=== PATIENT | female | born 1935 | race Caucasian/White ===

== ENCOUNTER 2023-08-09 18:55 | Emergency (ER) | payer MEDICARE ==
[~2023-08-09] VITALS: Ht 160 cm; Wt 68.0 kg
[2023-08-09 19:46] LABS: BASO # 0.1 10*3/uL (0.0-0.1); BASO % 0.9 % (0.0-1.0); EOS # 0.2 10*3/uL (0.0-0.4); EOS % 3.1 % (1.0-4.0); HEMATOCRIT 41.5 % (37.0-47.0); LYMPH # 1.9 10*3/uL (1.3-4.4); LYMPH % 23.7 % (27.0-41.0); MEAN CELL VOLUME 96.7 fl (81.0-99.0); MEAN CORPUSCULAR HGB 30.3 pg (27.0-31.0); MEAN CORPUSCULAR HGB CONC 31.3 g/dl (33.0-37.0); MEAN PLATELET VOLUME 9.5 fl (9.6-12.3); MONO # 0.5 10*3/uL (0.1-1.0); MONO % 6.9 % (3.0-9.0); NEUT # 5.1 10*3/uL (2.3-7.9); NEUT % 65.1 % (47.0-73.0); PLATELET COUNT AUTOMATED 256 10*3/uL (130-400); RED BLOOD COUNT 4.29 10*6/uL (4.10-5.10); RED CELL DISTRI WIDTH 13.5 % (0-14.5); WHITE BLOOD COUNT 7.8 10*3/uL (4.8-10.8)
[2023-08-09 20:10] LABS: ALKALINE PHOSPHATASE 100 U/L (46-116); BUN 11 mg/dl (9-23); CHLORIDE 106 mmol/L (98-107); CPK 47 U/L (34-171); SGPT/ALT 15 U/L (5-49); TOTAL PROTEIN 7.2 gm/dL (6.0-8.0)
[2023-08-09 20:11] LABS: ETHYL ALCOHOL < 3.0 mg/dl (<3)
[2023-08-09 20:19] LABS: BILIRUBIN Negative (Negative); BLOOD 1+ (Negative); CLARITY Clear (Clear); COLOR Yellow (Yellow); GLUCOSE Negative (Negative); KETONE Negative (Negative); LEUKO ESTERASE Negative (Negative); NITRITE Negative (Negative); SPECIFIC GRAVITY <= 1.005 (1.001-1.030); UROBILINOGEN 0.2 E.U./dl (0.0-1.0)
[2023-08-09 20:25] LABS: URINE AMPHETAMINES Negative (1000ng/ml); URINE BARBITURATES Negative (200ng/ml); URINE BENZODIAZEPINES Negative (200ng/ml); URINE CANNABINOIDS (THC) Negative (50ng/ml); URINE COCAINE Negative (300ng/ml); URINE METHADONE Negative (300ng/ml); URINE OPIATES Negative (300ng/ml); URINE PHENCYCLIDINE Negative (25ng/ml)
[2023-08-09] MEDS ORDERED: TYLENOL325 M1 PO (20:27)
[2023-08-09] MEDS ORDERED: AMLODIPINE BESYL5 MG PO (20:28)
[2023-08-09] MEDS ORDERED: ELIQUIS5 M1 PO (20:29)
[2023-08-09] MEDS ORDERED: KENALOG-4040 MG/1 ML IM (20:30)
[2023-08-09] MEDS ORDERED: KEPPRA500 MG PO (20:30)
[2023-08-09] MEDS ORDERED: Zestril,Prinivi40 MG PO (20:31)
[2023-08-09] MEDS ORDERED: MELATONIN3 MG PO (20:31)
[2023-08-09] MEDS ORDERED: MILK OF MA400 MG/51 PO (20:34)
[2023-08-09] MEDS ORDERED: Ondansetron4 MG PO (20:35)
[2023-08-09] MEDS ORDERED: MIRTAZAPINE30 M2 PO (20:35)
[2023-08-09 20:36] LABS: WBC 0-2 wbc/hpf (0-5)
[2023-08-09] MEDS ORDERED: EXELON1 EACH T (20:42)
[2023-08-09] MEDS ORDERED: ROSUVASTATIN CA10 MG PO (20:43)
[2023-08-09] MEDS ORDERED: TRAMADOL HCL25 MG PO (21:22)
[2023-08-09] MEDS ORDERED: VISTARIL25 M2 PO (21:23)
== END 2023-08-09 20:55 | disposition admitted as inpatient to this hospital (09) ==
LOC: ED 18:55
PROVIDERS: Nurse Practitioner Family
DX: F63.81 Intermittent explosive disorder (principal); Z20.822 Contact with and (suspected) exposure to COVID-19; F03.90 Unspecified dementia, unspecified severity, without behavioral disturbance, psychotic disturbance, mood disturbance, and anxiety; J44.9 Chronic obstructive pulmonary disease, unspecified; F32.A Depression, unspecified; I10 Essential (primary) hypertension

== ENCOUNTER 2023-08-09 20:59 | Inpatient (IN) | payer MEDICARE ==
[~2023-08-09] VITALS: Ht 167.6 cm; Wt 66.0 kg
[~2023-08-09 20:59] MED LIST: AMLODIPINE BESYL5 MG PO; ELIQUIS5 M1 PO; EXELON1 EACH T; KENALOG-4040 MG/1 ML IM; KEPPRA500 MG PO; MELATONIN3 MG PO; MILK OF MA400 MG/51 PO; MIRTAZAPINE30 M2 PO; Ondansetron4 MG PO; ROSUVASTATIN CA10 MG PO; TYLENOL325 M1 PO; Zestril,Prinivi40 MG PO
[2023-08-09] MEDS ORDERED: ACETAMINOPHEN 325 MG TAB PO PRN (21:10)
[2023-08-09] MEDS ORDERED: Magnesium Hydroxide 30 ML UDC PO PRN ×2 (21:10→22:10)
[2023-08-09] MEDS ORDERED: MG-AL HYDROXIDE/SIMETICONE 30 ML UDC PO PRN (21:10)
[2023-08-09] MEDS ORDERED: Menthol/Zinc Oxide 4 GM THIN T PRN (21:15)
[2023-08-09] MEDS ORDERED: TRAMADOL HCL25 MG PO (21:22)
[2023-08-09] MEDS ORDERED: VISTARIL25 M2 PO (21:23)
[2023-08-09] MEDS ORDERED: hydrOXYzine pamoate 25 MG CAP PO PRN (21:25)
[2023-08-09] MEDS ORDERED: LORazepam 1 MG TAB PO PRN (21:30)
[2023-08-09] MEDS ORDERED: Ziprasidone Mesylate 20 MG VIAL IM PRN (21:35)
[2023-08-09] MEDS ORDERED: Water, Sterile 10 ML VIAL IM PRN (21:35)
[2023-08-09 21:40] VITALS: BP 155/73
[2023-08-09] MEDS ORDERED: Ondansetron Hydrochloride 4 MG TAB PO PRN (22:10)
[2023-08-10 06:13] LABS: BASO # 0.1 10*3/uL (0.0-0.1); EOS # 0.3 10*3/uL (0.0-0.4); EOS % 4.6 % (1.0-4.0); HEMATOCRIT 38.1 % (37.0-47.0); LYMPH # 2.1 10*3/uL (1.3-4.4); LYMPH % 31.1 % (27.0-41.0); MEAN CELL VOLUME 95.3 fl (81.0-99.0); MEAN CORPUSCULAR HGB 30.5 pg (27.0-31.0); MEAN PLATELET VOLUME 9.4 fl (9.6-12.3); MONO # 0.5 10*3/uL (0.1-1.0); NEUT # 3.7 10*3/uL (2.3-7.9); NEUT % 54.9 % (47.0-73.0); PLATELET COUNT AUTOMATED 238 10*3/uL (130-400); RED CELL DISTRI WIDTH 13.6 % (0-14.5); WHITE BLOOD COUNT 6.7 10*3/uL (4.8-10.8)
[2023-08-10 06:31] LABS: ALKALINE PHOSPHATASE 94 U/L (46-116); BUN 11 mg/dl (9-23); CHLORIDE 107 mmol/L (98-107); CHOLESTEROL 160 mg/dL (<200); LDL CHOLESTEROL 85 mg/dL (9-159); SGPT/ALT 14 U/L (5-49); TOTAL PROTEIN 6.5 gm/dL (6.0-8.0); TRIGLYCERIDES 82 mg/dl (<150)
[2023-08-10 08:00] VITALS: BP 120/50
[2023-08-10] MEDS ORDERED: Duloxetine Hydrochloride 30 MG CAP PO SCH (09:00)
[2023-08-10] MEDS ORDERED: APIXABAN 5 MG TAB PO SCH (09:00)
[2023-08-10] MEDS ORDERED: amLODIPine besylate 5 MG TAB PO SCH (09:00)
[2023-08-10] MEDS ORDERED: Rivastigmine Tartrate 9.5 MG/24 HR PATCH T SCH (09:00)
[2023-08-10] MEDS ORDERED: LEVETIRACETAM 500 MG TAB PO SCH (09:00)
[2023-08-10] MEDS ORDERED: LISINOPRIL 40 MG TAB PO SCH (09:00)
[2023-08-10 20:00] VITALS: BP 122/53
[2023-08-10] MEDS ORDERED: Memantine Hydrochloride 5 MG TAB PO SCH ×2 (21:00)
[2023-08-10] MEDS ORDERED: Mirtazapine 15 MG TAB PO SCH (21:00)
[2023-08-10] MEDS ORDERED: ATORVASTATIN CALCIUM 40 MG TABLET PO SCH (21:00)
[2023-08-11 08:05] VITALS: BP 100/56
[2023-08-11] MEDS ORDERED: Cholecalciferol 2,000 UNIT TABLET (50 MCG) PO SCH (09:00)
[2023-08-11] MEDS ORDERED: Memantine Hydrochloride 5 MG TAB PO SCH (09:00)
[2023-08-11 09:44] VITALS: BP 100/50
[2023-08-11 20:00] VITALS: BP 124/74
[2023-08-11] MEDS ORDERED: Memantine Hydrochloride 10 MG TAB PO SCH (21:00)
[2023-08-12 07:35] VITALS: BP 108/59
[2023-08-12 19:10] VITALS: BP 139/59
[2023-08-13 08:00] VITALS: BP 143/50
[2023-08-13] MEDS ORDERED: RIVASTIGMINE 13.3 MG/24 HR TDM T SCH (09:00)
[2023-08-13 20:00] VITALS: BP 145/55
[2023-08-13] MEDS ORDERED: ARIPiprazole 5 MG TAB PO SCH (21:00)
[2023-08-13] MEDS ORDERED: Memantine Hydrochloride 10 MG TAB PO SCH (21:00)
[2023-08-14 07:46] VITALS: BP 106/58
[2023-08-14 20:00] VITALS: BP 114/58
[2023-08-15 09:00] VITALS: BP 136/59
[2023-08-15 20:00] VITALS: BP 108/61
[2023-08-15] MEDS ORDERED: ARIPiprazole 10 MG TAB PO SCH (21:00)
[2023-08-16] MEDS ORDERED: IBUPROFEN 400 MG TAB PO PRN (01:30)
[2023-08-16 08:00] VITALS: BP 132/69
[2023-08-16 20:00] VITALS: BP 139/51
[2023-08-17 07:04] LABS: BASO # 0.1 10*3/uL (0.0-0.1); BASO % 1.2 % (0.0-1.0); EOS # 0.3 10*3/uL (0.0-0.4); EOS % 5.1 % (1.0-4.0); HEMATOCRIT 35.4 % (37.0-47.0); LYMPH # 1.9 10*3/uL (1.3-4.4); LYMPH % 29.2 % (27.0-41.0); MEAN CELL VOLUME 96.2 fl (81.0-99.0); MEAN CORPUSCULAR HGB 30.7 pg (27.0-31.0); MEAN CORPUSCULAR HGB CONC 31.9 g/dl (33.0-37.0); MEAN PLATELET VOLUME 9.5 fl (9.6-12.3); MONO # 0.5 10*3/uL (0.1-1.0); MONO % 7.4 % (3.0-9.0); NEUT # 3.8 10*3/uL (2.3-7.9); NEUT % 56.8 % (47.0-73.0); PLATELET COUNT AUTOMATED 230 10*3/uL (130-400); RED BLOOD COUNT 3.68 10*6/uL (4.10-5.10); RED CELL DISTRI WIDTH 13.2 % (0-14.5); WHITE BLOOD COUNT 6.6 10*3/uL (4.8-10.8)
[2023-08-17 07:26] LABS: ALKALINE PHOSPHATASE 86 U/L (46-116); BUN 18 mg/dl (9-23); CHLORIDE 105 mmol/L (98-107); POTASSIUM 4.3 mmol/L (3.4-5.1); SGPT/ALT 15 U/L (5-49); TOTAL PROTEIN 5.8 gm/dL (6.0-8.0)
[2023-08-17 08:00] VITALS: BP 136/50
[2023-08-17] MEDS ORDERED: RAMELTEON 8 MG TAB PO PRN (08:50)
[2023-08-17 20:00] VITALS: BP 135/63
[2023-08-18 07:39] VITALS: BP 103/56
[2023-08-18 20:00] VITALS: BP 128/58
[2023-08-18] MEDS ORDERED: Mirtazapine 15 MG TAB PO SCH (21:00)
[2023-08-19 08:00] VITALS: BP 117/52
[2023-08-19] MEDS ORDERED: ARIPIPRAZOLE10 MG PO (09:41)
[2023-08-19] MEDS ORDERED: RAMELTEON8 MG PO (09:41)
[2023-08-19] MEDS ORDERED: RIVASTIGMINE1 EAC2 T (09:41)
[2023-08-19] MEDS ORDERED: MEMANTINE HCL10 MG PO (09:41)
[2023-08-19] MEDS ORDERED: MIRTAZAPINE15 M2 PO (09:41)
== END 2023-08-19 15:50 | DRG 885 ==
LOC: 3N 20:59 → EDHOLD 20:59 → 3N 21:05
PROVIDERS: Nurse Practitioner; ADMIT Psychiatry & Neurology Psychiatry; ATTEND Psychiatry & Neurology Psychiatry
PROC: GZHZZZZ Group Psychotherapy (ICD-10-PCS; principal; 2023-08-09)
PROC: GZ52ZZZ Individual Psychotherapy, Cognitive (ICD-10-PCS; 2023-08-09)
PROC: GZ56ZZZ Individual Psychotherapy, Supportive (ICD-10-PCS; 2023-08-09)
DX: F33.2 Major depressive disorder, recurrent severe without psychotic features (principal); F63.81 Intermittent explosive disorder; F03.C0 Unspecified dementia, severe, without behavioral disturbance, psychotic disturbance, mood disturbance, and anxiety; J44.9 Chronic obstructive pulmonary disease, unspecified; Z66 Do not resuscitate; I27.20 Pulmonary hypertension, unspecified; I10 Essential (primary) hypertension; G47.00 Insomnia, unspecified; E78.5 Hyperlipidemia, unspecified